=== PATIENT | female | born 1960 | race Caucasian/White ===

== ENCOUNTER 2016-09-02 07:45 | Emergency (ER) | payer MEDICAID ==
[~2016-09-02] VITALS: Ht 167.6 cm; Wt 72.6 kg
[2016-09-02 09:08] VITALS: BP 123/75
== END 2016-09-02 09:08 | disposition home or self-care (01) ==
LOC: ER 07:47
DX: S00.10XA Contusion of unspecified eyelid and periocular area, initial encounter (principal); F07.81 Postconcussional syndrome; F17.210 Nicotine dependence, cigarettes, uncomplicated; Z88.0 Allergy status to penicillin; F10.20 Alcohol dependence, uncomplicated; W19.XXXA Unspecified fall, initial encounter; Y92.89 Other specified places as the place of occurrence of the external cause; Y93.89 Activity, other specified; Y99.8 Other external cause status
CPT/HCPCS: 70450-TC; 70486-TC; A4606; Z7610

== ENCOUNTER 2016-09-16 07:17 | Emergency (ER) | payer MEDICAID ==
[~2016-09-16] VITALS: Ht 170.2 cm; Wt 68.0 kg
[2016-09-16 07:45] VITALS: BP 123/81
== END 2016-09-16 07:49 | disposition home or self-care (01) ==
LOC: ER 07:20
DX: F12.90 Cannabis use, unspecified, uncomplicated (principal); Z88.0 Allergy status to penicillin; F10.20 Alcohol dependence, uncomplicated; F17.210 Nicotine dependence, cigarettes, uncomplicated
CPT/HCPCS: 99283; A4606; Z7610

== ENCOUNTER 2016-09-26 12:56 | Emergency (ER) | payer MEDICAID | END 2016-09-26 13:30 | disposition left against medical advice (07) | LOC: ER 12:56 | DX: Z53.21 Procedure and treatment not carried out due to patient leaving prior to being seen by health care provider (principal) ==

== ENCOUNTER 2016-09-28 06:53 | Emergency (ER) | payer MEDICAID ==
[~2016-09-28] VITALS: Ht 167.6 cm; Wt 52.2 kg
[2016-09-28 07:46] LABS: BASOPHILS % (AUTO) 0.5 % (0.0-2.0); DIFF TOTAL % 100 %; EOSINOPHILS # (AUTO) 0.1 /CMM (0.0-0.7); HEMATOCRIT 36 % (33-45); HEMOGLOBIN 12.3 g/dL (11.5-14.8); LYMPHOCYTES # (AUTO) 0.9 /CMM (0.8-4.8); LYMPHOCYTES % (AUTO) 29.1 % (20.0-44.0); MEAN CORPUSCULAR HEMOGLOBIN 34 PG (26.0-33.0); MEAN CORPUSCULAR HGB CONC 34 g/dl (31.0-36.0); MEAN CORPUSCULAR VOLUME 97 fL (82-100); MONOCYTES # (AUTO) 0.2 /CMM (0.1-1.30); MONOCYTES % (AUTO) 7.5 % (2.0-12.0); NEUTROPHILS # (AUTO) 1.8 /CMM (1.8-8.9); NEUTROPHILS % (AUTO) 59.9 % (43.0-81.0); PLATELET COUNT (AUTO) 279 /CMM (150-450); RED BLOOD CELL COUNT(AUTO) 3.68 MIL/uL (4.0-5.2); WHITE BLOOD COUNT (AUTO) 2.9 K/uL (4.3-11.0)
[2016-09-28 07:50] LABS: ANION GAP 12 (5-14); CALCIUM, SERUM 9.4 mg/dL (8.5-10.1); CARBON DIOXIDE 28 mmol/L (21-32); CHLORIDE 105 mmol/L (98-107); CREATININE 0.8 mg/dL (0.6-1.3); GFR 74 mL/min (>60); GLUCOSE 115 mg/dL (74-106); SODIUM SERUM 141 mmol/L (136-145); UREA NITROGEN, BLOOD 12 mg/dL (7-18)
[2016-09-28 08:02] LABS: INR 0.96 (0.87-1.13); PROTHROMBIN TIME 10.4 SECS (9.5-12.7)
[2016-09-28 08:09] LABS: TROPONIN I < 0.017 ng/mL (0.00-0.056)
[2016-09-28] MEDS ORDERED: KETOROLAC TROMETHAMINE 15 MG/ML VIAL ONE (08:22)
[2016-09-28] MEDS ORDERED: KETOROLAC TROMETHAMINE INJ 30 MG/ML VIAL IV ONE (08:30)
[2016-09-28 08:37] VITALS: BP 121/76
[2016-09-28 09:20] LABS: ANISOCYTOSIS 1+; EOSINOPHILS % (MANUAL) 2 % (0-4); LYMPHOCYTES % (MANUAL) 32 % (16-48); PLATELET ESTIMATE ADEQUATE
== END 2016-09-28 08:38 | disposition home or self-care (01) ==
LOC: ER 06:55
DX: R07.9 Chest pain, unspecified (principal); F17.200 Nicotine dependence, unspecified, uncomplicated; Z88.0 Allergy status to penicillin
CPT/HCPCS: 36415; 71010; 80048; 84484; 85025; 85730; 93005; 96374; 99285; A4606; J1885; Z7610

== ENCOUNTER 2017-06-18 11:40 | Emergency (ER) | payer MEDICAID ==
[~2017-06-18] VITALS: Ht 165.1 cm; Wt 59.0 kg
[2017-06-18 11:40] VITALS: BP 94/62
== END 2017-06-18 12:04 | disposition home or self-care (01) ==
LOC: ER 11:42
DX: S60.812A Abrasion of left wrist, initial encounter (principal); F12.10 Cannabis abuse, uncomplicated; Z88.0 Allergy status to penicillin; W46.0XXA Contact with hypodermic needle, initial encounter; Y93.89 Activity, other specified; Y92.89 Other specified places as the place of occurrence of the external cause; Y99.8 Other external cause status
CPT/HCPCS: 99282; A4606; Z7610

== ENCOUNTER 2019-12-10 21:27 | Emergency (ER) | payer SELFPAY ==
[~2019-12-10] VITALS: Ht 167.6 cm; Wt 54.4 kg
[2019-12-10 21:34] VITALS: BP 137/84
--- NOTE | 2019-12-10 21:39 | NUR ---
PATIENT CAME TO ER BED 1 C/O LACERATION ON HAIRLINE REGION ON HEAD. PATIENT DENIES LOSS OF CONSCIOUSNESS. PATIENT STATES THAT SHE WAS IN A STORAGE WHEN A BOX HAD FELL ON HER HEAD. A LACERATION IS SEEN ABOUT 2CM. AAOX4. NO SOB. BREATHING EVENLY AND UNLABORED ON ROOM AIR.
--- NOTE | 2019-12-10 21:45 | NUR ---
TECH AT BEDSIDE FOR CLEANING WOUND
--- NOTE | 2019-12-10 22:21 | NUR ---
Patient discharged to home in stable condition. Written and verbal after care instructions given. Patient verbalizes understanding of instruction.
== END 2019-12-10 22:26 | disposition home or self-care (01) ==
LOC: ER 21:27
DX: S01.81XA Laceration without foreign body of other part of head, initial encounter (principal); Z88.0 Allergy status to penicillin; W22.8XXA Striking against or struck by other objects, initial encounter; Y93.89 Activity, other specified; Y92.89 Other specified places as the place of occurrence of the external cause; Y99.8 Other external cause status
CPT/HCPCS: 99281; A6403

== ENCOUNTER 2022-10-20 08:13 | Emergency (ER) | payer OTHER ==
[~2022-10-20] VITALS: Ht 167.6 cm; Wt 54.4 kg
--- NOTE | 2022-10-20 08:25 | NUR ---
RECEIVED PT 62 YRS FEMALE FROM HOME C/O LT FLANCK PAIN SINCE LAST NIGHT PAIN LEVEL 910
--- NOTE | 2022-10-20 08:45 | NUR ---
BLOOD DROW BY LAB TACH
[2022-10-20] MEDS ORDERED: KETOROLAC TROMETHAMINE INJ 60 MG/2 ML VIAL IM ONE (09:00)
[2022-10-20] MEDS ORDERED: KETOROLAC TROMETHAMINE INJ 30 MG/ML VIAL ONE ×2 (09:01)
--- NOTE | 2022-10-20 09:11 | NUR ---
X RAY DONE AT BED SIDE
[2022-10-20 09:16] LABS: BASOPHILS % (AUTO) 0.8 % (0.0-2.0); EOSINOPHILS % (AUTO) 2.3 % (0.0-6.0); HEMATOCRIT 38 % (33-45); HEMOGLOBIN 12.7 g/dL (11.5-14.8); LYMPHOCYTES # (AUTO) 0.8 K/uL (0.8-4.8); LYMPHOCYTES % (AUTO) 25.1 % (20.0-44.0); MEAN CORPUSCULAR HGB CONC 34 g/dl (31.0-36.0); MEAN CORPUSCULAR VOLUME 94 fL (82-100); MONOCYTES # (AUTO) 0.4 K/uL (0.1-1.30); MONOCYTES % (AUTO) 11.7 % (2.0-12.0); NEUTROPHILS # (AUTO) 1.9 K/uL (1.8-8.9); NEUTROPHILS % (AUTO) 60.1 % (43.0-81.0); PLATELET COUNT (AUTO) 284 K/uL (150-450); RED BLOOD CELL COUNT(AUTO) 4.01 MIL/uL (4.0-5.2); WHITE BLOOD COUNT (AUTO) 3.1 K/uL (4.3-11.0)
[2022-10-20 09:23] LABS: BILIRUBIN,URINE NEGATIVE (NEGATIVE); COLOR,URINE YELLOW (YELLOW); LEUKOCYTE ESTERASE ,URINE 2+ (NEGATIVE); NITRITE, URINE NEGATIVE (NEGATIVE); PROTEIN,URINE TRACE mg/dl (NEGATIVE); UGLUCOSE NEGATIVE (NEGATIVE)
[2022-10-20 09:25] LABS: CALCIUM, SERUM 9.6 mg/dL (8.5-10.1); POTASSIUM 4.2 mmol/L (3.5-5.1)
[2022-10-20 09:38] LABS: BILIRUBIN,DIRECT 0.1 mg/dL (0.0-0.2); BILIRUBIN,TOTAL 0.4 mg/dL (0.2-1.0)
[2022-10-20 09:49] LABS: BACTERIA,URINE Few /HPF (None Seen); RBC,URINE 0-2 /HPF (0-2); SQUAMOUS EPITHELIAL CELL,UR Many /HPF (None Seen)
--- NOTE | 2022-10-20 10:00 | NUR ---
DINESES ABDOMINAL PAIN PACK PAIN BEATER AND IMPROVING
[2022-10-20] MEDS ORDERED: NITR100C PO (10:03)
[2022-10-20] MEDS ORDERED: NAPR-1164 PO (10:03)
--- NOTE | 2022-10-20 10:42 | NUR ---
[place] D/C INSTRACTION GIVEN TO PT CAN NOT WAIT FOR WRITEN INSTRACTION TO PLAN TO GO WORK
--- NOTE | 2022-10-20 10:43 | NUR ---
Pt states "I have to- will go to work." Verbal instructions given. NO distress noted. NO Acute changes
[2022-10-20 10:44] VITALS: BP 137/70
== END 2022-10-20 10:50 | disposition home or self-care (01) ==
LOC: ER 08:25
DX: N39.0 Urinary tract infection, site not specified (principal); Z88.0 Allergy status to penicillin
CPT/HCPCS: 99284; 96372; 71100; 85025; 80048; 87086; 83690; 80076; 81001; 36415; J1885 ×2